=== PATIENT | female | born 1950 | race Caucasian/White ===

== ENCOUNTER 2022-10-03 12:49 | Outpatient (OUT) | payer MEDICARE, SELFPAY ==
--- NOTE | 2022-10-03 13:55 | MM_ITS ---
Patient: CORINNA PINTO Exam Date: 10/03/2022 : 1950 Gender:F Ordering : Non-Staff Physician Admission #: [id number] Family : Order #: [id number] CLICK HERE TO VIEW EXAM RADIOLOGY REPORT PROCEDURE: MM TOMOSYNTHESIS SCREENING BI COMPARISON: MM TOMOSYNTHESIS SCREENING BI, 11/05/2018. INDICATIONS: Screening mammogram Z12.31 Calculator Name NCI Breast Cancer Risk Assessment Tool 5 Year Breast Cancer Risk 2.00% Lifetime Breast Cancer Risk 4.80% Personal Breast Cancer No Personal Ovarian Cancer No Treatments None Family Cancers Father with mouth cancer at age 60. LOCATION: [facility] BREAST COMPOSITION: Heterogeneously dense,which may obscure small masses. FINDINGS: DIAGNOSTIC CATEGORY 2--BENIGN FINDING. NO CHANGE FROM COMPARISON. Scattered benign-appearing nodules are present. Scattered benign-appearing calcifications are present. RIGHT BREAST: No significant suspicious finding. LEFT BREAST: No significant suspicious finding. RECOMMENDATIONS: ROUTINE MAMMOGRAM AND CLINICAL EVALUATION IN 12 MONTHS. PLEASE NOTE: A NORMAL MAMMOGRAM DOES NOT EXCLUDE THE POSSIBILITY OF BREAST CANCER. A CLINICALLY SUSPICIOUS PALPABLE LUMP SHOULD BE BIOPSIED. Dictated by: Olivier Brannon MD on 10/03/2022 at 14:05 Approved by: Olivier Brannon MD on 10/03/2022 at 14:13
== END 2022-10-03 12:50 | disposition home or self-care (01) ==
LOC: MAMMO 12:50
DX: Z12.31 Encounter for screening mammogram for malignant neoplasm of breast (principal); Z80.0 Family history of malignant neoplasm of digestive organs
CPT/HCPCS: 77063; 77067

== ENCOUNTER 2023-08-11 18:44 | Emergency (ER) | payer MEDICARE, MEDICAID, SELFPAY ==
[2023-08-11] VITALS (36 sets, daily range): BP systolic 74–132; BP diastolic 43–63; PULSE 87–96; TEMP 36.8; O2SAT 84–98; BMI 28.0
--- NOTE | 2023-08-11 18:53 | CT_ITS ---
The [address] [address] Patient Name: CORINNA PINTO MRN: [id number] date: 1950 Sex: F Assigned Patient Location: ER Current Patient Location: ER Accession/Order Number: [id number] Exam Date: 08/11/2023 19:53 Report Date: 08/11/2023 21:08 At the request of: VICTOR HUGO MORRIS Procedure: CT abdomen pelvis wo con EXAM: CT abdomen pelvis wo con HISTORY: Abdominal pain COMPARISON: None. TECHNIQUE: Unenhanced axial CT of the abdomen and pelvis was performed with coronal and sagittal reformats provided. FINDINGS: Lung bases: Bibasilar atelectasis. ABDOMEN: Liver: Normal. Gallbladder/biliary: Normal. Pancreas: Normal. Spleen: Normal. Adrenals: Normal. Kidneys, ureters and urinary bladder: Normal. Pelvis: Normal size of the uterus. No adnexal masses. Vasculature: Calcific atherosclerosis of the abdominal aorta. There is a aorto iliac stent on the right with a bifemoral bridge at the pelvis. Hollow viscera/retroperitoneum: Normal appearance of the gastroesophageal junction. The small bowel is normal caliber. No focal colonic wall thickening. The appendix is normal. There is multifocal areas of intra-abdominal free air. Percutaneous drainage catheter terminates in the pelvis just superior to the urinary bladder. At the skin surface is a fluid collection containing air at percutaneous catheter site. Small amount of intrapelvic free fluid containing locules of air. Trace free fluid in the bilateral paracolic gutters. Musculoskeletal/soft tissues: Soft tissues are otherwise within normal limits. Partially imaged postsurgical changes of the right femur. No acute fracture or aggressive osseous abnormality. CT/CT abdomen pelvis wo con IMPRESSION: There is a percutaneous drain seen at the right ventral abdomen and coiling within the pelvis just superior to the urinary bladder. There is trace free fluid seen in the pelvis and along the paracolic gutters which is minimal. Small foci of intra-abdominal air are nonspecific and could be secondary to drainage catheter placement versus bowel perforation. Recommend correlation with clinical history. Small fluid collection with locule of air at the percutaneous catheter site external to the abdominal cavity could reflect a small abscess. Electronically authenticated by: RADHA LI Date: 08/11/2023 21:08
--- NOTE | 2023-08-11 18:53 | ECG_ITS ---
The [facility] Test Date: 2023-08-11 Pat Name: CORINNA PINTO Department: Room: - Gender: Female Fill Technician: : 1950 Requested By: Order Number: [id number] Reading MD: SARAH RAMOS Measurements Intervals Bath Rate: 94 P: 51 NV: 150 QRS: 32 QRSD: 94 T: 94 QT: 354 QTc: 406 Interpretive Statements 1100 Sinus rhythm 1570 with occasional ventricular premature complexes 3114 Cannot rule out anterior myocardial infarction, age undetermined [address] depression 9150 abnormal ECG Electronically Signed On 08-12-2023 6:35:42 EDT by SARHA RAMOS
--- NOTE | 2023-08-11 18:54 | ED_ITS ---
HPI HPI - General Adult General Chief complaint: Abdominal Pain Stated complaint: ALTERED Time Seen by Provider: 08/11/23 18:52 Source: patient Mode of arrival: ambulance Limitations: no limitations History of Present Illness HPI narrative: Patient is a 73-year-old female with a history of peritoneal dialysis who presents to the emergency department by ambulance for abdominal pain and no bowel movement today. She states her does her peritoneal dialysis nightly. She denies fevers. She has had no vomiting but has had nausea. She states she does make some urine. She states she does not believe she has ever had abdominal surgery, she has no abdominal incisions but is noted to have a peritoneal dialysis catheter to the right lower abdomen. She has not urinated today. Related Data Allergies Allergy/AdvReac Type Severity Reaction Status Date / Time No Known Drug Allergies Allergy Verified 08/11/23 18:52 Opioid HPI Opioid Management Most Recent Opioid Data: No Data to Display Review of Systems ROS Constitutional Denies: fever or chills Ears, nose, mouth, and throat Denies: throat pain or nasal congestion Cardiovascular Denies: chest pain Respiratory Denies: shortness of breath or cough Gastrointestinal Reports: abdominal pain, nausea and constipation; Denies: vomiting or diarrhea Musculoskeletal Denies: back pain Integumentary/Breast Denies: rash Neurological Denies: headache Hematologic/Lymphatic Denies: easy bruising or easy bleeding Exam Narrative Exam Narrative: Gen.: Awake, alert, in no distress Head: Normocephalic, atraumatic ENT: Moist mucous membranes Respiratory: No respiratory distress, lungs clear bilaterally Cardio: Regular rate and rhythm Gastrointestinal: Abdomen is soft, Distended but not firm, no rigidity Extremities: Moves extremities equally, no injuries noted Psych: Normal mood and affect Neuro: No focal neuro deficit Skin: Warm, dry, intact Constitutional Vital Signs, click to edit/add: Last Vital Signs Temp 98.2 F 08/11/23 18:49 Pulse 90 08/11/23 21:50 Resp 15 08/11/23 21:50 BP 119/58 08/11/23 21:45 Pulse Ox 96 08/11/23 21:00 O2 Del Method Room Air 08/11/23 19:01 Course Vital Signs Vital signs: Vital Signs Temperature 98.2 F 08/11/23 18:49 Pulse Rate 95 H 08/11/23 18:49 Respiratory Rate 16 08/11/23 18:49 Blood Pressure 74/43 L 08/11/23 18:49 Pulse Oximetry 93 L 08/11/23 18:49 Oxygen Delivery Method Room Air 08/11/23 18:49 Temperature 98.2 F 08/11/23 18:49 Pulse Rate 90 08/11/23 21:50 Respiratory Rate 15 08/11/23 21:50 Blood Pressure 119/58 08/11/23 21:45 Pulse Oximetry 96 08/11/23 21:00 Oxygen Delivery Method Room Air 08/11/23 19:01 Medical Decision Making MDM Narrative Medical decision making narrative: Arrival to the ER, patient was noted to be hypotensive. IV, sepsis labs were obtained for the patient and she was sent for CT of the abdomen and pelvis as well as a chest x-ray. Labs show the patient has significant leukocytosis and bandemia. She has a normal lactic acid but elevated procalcitonin. Urine catheter specimen obtained showing no evidence of UTI. Blood cultures are also pending. Based on the patient's history, we have concern for spontaneous bacterial peritonitis although she has no pain out of proportion on exam and blood pressure improved easily with IV fluids. Ampicillin and gentamicin were given for antibiotic coverage. CT of the abdomen and pelvis without contrast was performed as the patient has chronic renal failure. This shows a small Area of fluid in the abdomen which is nonspecific as well as a small foci of air, radiologist cannot rule out a bowel perforation although At this time we are much more concerned for SBP. Patient also has an elevated troponin which may be secondary to her chronic renal failure as she has no chest pain and no EKG changes, however she is not appropriate for staying at this facility. She receives all of her nephrology care at [facility] so the hospitalist at [facility] was contacted. Dr. Hodgson accepted the patient for transfer, critical care time 35 min Medical Records Medical records reviewed: Yes I reviewed the patient's medical records Lab Data Lab results reviewed: Yes I reviewed the patient's lab results Labs: Lab Results 08/11/23 08/11/23 Range/Units 19:03 20:25 WBC 28.6 H (4.0-11.0) 10^3/uL RBC 2.97 L (4.20-5.40) 10^6/uL Hgb 9.5 L (12.0-16.0) g/dL Hct 30.0 L (36.0-48.0) % MCV 101.0 H (81.0-99.0) fL MCH 32.0 (26.7-34.0) pg MCHC 31.7 (29.9-35.2) g/dL RDW 14.5 (11.0-15.0) % Plt Count 379 (150-450) 10^3/uL MPV 10.3 (9.5-13.5) fL Seg Neuts % (Manual) 49.0 Band Neutrophils % 30.0 H (0-5) % Lymphocytes % (Manual) 12.0 L (20.5-60.0) % Atypical Lymphs % (Man) 4.0 % Monocytes % (Manual) 5.0 (1.7-12.0) % Eosinophils % (Manual) 0.0 L (0.9-7.0) % Basophils % (Manual) 0.0 L (0.2-2.0) % Neutrophils # (Manual) 14.01 H (1.4-6.5) 10^3/uL Band Neutrophils # 8.6 H (0.0-0.3) 10^3/uL Lymphocytes # (Manual) 3.43 (1.20-3.80) 10^3/uL Abs Atypical Lymphs Man 1.14 Monocytes # (Manual) 1.43 H (0.30-0.80) 10^3/uL Eosinophils # (Manual) 0.00 (0.00-0.70) 10^3/uL Basophils # (Manual) 0.00 (0.00-0.10) 10^3/uL PT 11.7 H (9.0-11.6) sec INR 1.12 VBG pH 7.380 (7.330-7.430) VBG pCO2 40.4 (40.0-52.0) mmHg Sodium 138 (136-145) mmol/L Potassium 5.1 (3.5-5.1) mmol/L Chloride 98 (98-107) mmol/L Carbon Dioxide 25.2 (21.0-32.0) mmol/L Anion Gap 19.9 BUN 40.0 H (7.0-18.0) mg/dL Creatinine 8.30 H* (0.55-1.02) mg/dL Est GFR ( Amer) 6 L (>=60) Est GFR (Non-Af Amer) 5 L (>=60) BUN/Creatinine Ratio 4.8 Glucose 192 H (74-106) mg/dL Lactate 3.9 H* (0.4-2.0) mmol/L Calcium 9.0 (8.5-10.1) mg/dL Total Bilirubin 1.1 H (0.2-1.0) mg/dL AST 28 (15-37) U/L ALT 21 (14-59) U/L Alkaline Phosphatase 115 (46-116) U/L Troponin I High Sens 588.4 H* (4.0-51.3) pg/mL Total Protein 6.3 L (6.4-8.2) g/dL Albumin 1.6 L (3.4-5.0) g/dL Globulin 4.7 g/dL Albumin/Globulin Ratio 0.3 Lipase 11.0 L (16.0-77.0) U/L Procalcitonin 20.51 H (0.00-0.50) ng/mL Urine Color Yellow (YELLOW) Urine Clarity Cloudy A (CLEAR) Urine pH 7.0 (5.0-9.0) Ur Specific [place] 1.025 (1.005-1.025) Urine Protein 100 A (NEG/TRACE) mg/dL Urine Glucose (UA) Negative (NEGATIVE) mg/dL Urine Ketones Trace A (NEGATIVE) mg/dL Urine Occult Blood Trace-i (NEGATIVE) Urine Nitrite Negative (NEGATIVE) Urine Bilirubin Negative (NEGATIVE) Urine Urobilinogen 0.2 (0.2-1.0) EU/dL Ur Leukocyte Esterase Moderate A (NEGATIVE) Urine RBC None seen (0-2) #/HPF Urine WBC 0-2 A (NONE SEEN) #/HPF Ur Squamous Epith Cells Rare (NONE/RARE) #/LPF Urine Crystals None seen (None Seen) #/HPF Amorphous Sediment Many Urine Bacteria None seen (NONE SEEN) #/HPF Urine Casts None seen (NONE SEEN) #/LPF Urine Mucus None seen (NONE SEEN) Ur Culture Indicated? No Imaging Data Chest x-ray: Attestation: I have reviewed the pertinent imaging results. Radiologist's impression: ITS Impressions Abdomen/Pelvis CT 08/11/23 18:53 IMPRESSION: There is a percutaneous drain seen at the right ventral abdomen and coiling within the pelvis just superior to the urinary bladder. There is trace free fluid seen in the pelvis and along the paracolic gutters which is minimal. Small foci of intra-abdominal air are nonspecific and could be secondary to drainage catheter placement versus bowel perforation. Recommend correlation with clinical history. Small fluid collection with locule of air at the percutaneous catheter site external to the abdominal cavity could reflect a small abscess. Electronically authenticated by: RADHA LI Date: 08/11/2023 21:08 Chest X-Ray 08/11/23 19:31 IMPRESSION: No acute cardiopulmonary process. Electronically authenticated by: RADHA LI Date: 08/11/2023 20:55 ECG Data Attestation: I personally reviewed and interpreted this ECG as follows: (Normal sinus rhythm at a rate of 94,Occasional PVCs with no acute ST elevation. EKG reviewed by attending physician) Discharge Plan Discharge Chief Complaint: Abdominal Pain Clinical Impression: Abdominal pain, Sepsis, Peritonitis Patient Disposition: [facility] Time of Disposition Decision: 22:03 Discharge Location: [facility] Condition: Fair Mode of Transportation: EMS Print Language: Luxembourgish Referrals: Gavi Bautista DO [Primary Care Provider] - 1 week
[2023-08-11 19:20] LABS: PCO2 VBG 40.4 mmHg (40.0-52.0)
[2023-08-11 19:21] LABS: Hemoglobin 9.5 g/dL (12.0-16.0); Mean Corpuscular HGB Conc 31.7 g/dL (29.9-35.2); Mean Platelet Volume 10.3 fL (9.5-13.5); Platelet Count 379 10^3/uL (150-450); Red Blood Count 2.97 10^6/uL (4.20-5.40); Red Cell Distribution Width 14.5 % (11.0-15.0); White Blood Count 28.6 10^3/uL (4.0-11.0)
[2023-08-11] MEDS: 0.9 % SODIUM CHLORIDE 1,000 ML 999 ML IV (19:24)
[2023-08-11] MEDS: HYOSCYAMINE SULFATE 0.125 MG TAB.SUBL SL (19:24)
[2023-08-11] MEDS: ONDANSETRON PF 4 MG/2 ML VIAL IV (19:24)
--- NOTE | 2023-08-11 19:31 | XR_ITS ---
The [address] [address] Patient Name: CORINNA PINTO MRN: [id number] date: 1950 Sex: F Assigned Patient Location: ER Current Patient Location: ER Accession/Order Number: [id number] Exam Date: 08/11/2023 19:53 Report Date: 08/11/2023 20:55 At the request of: VICTOR HUGO MORRIS Procedure: XR chest 1V EXAM: XR chest 1V HISTORY: Abdominal pain COMPARISON: Chest x-ray 12/13/2020 TECHNIQUE: Single AP radiograph of the chest FINDINGS: No pneumothorax, pleural effusion or consolidation. Normal heart size. Multiple bilateral chronic appearing rib fractures. XR/XR chest 1V IMPRESSION: No acute cardiopulmonary process. Electronically authenticated by: RADHA LI Date: 08/11/2023 20:55
[2023-08-11 19:34] LABS: INR 1.12; Prothrombin Time 11.7 sec (9.0-11.6)
[2023-08-11 19:38] LABS: Alanine Aminotransferase 21 U/L (14-59); Albumin Globulin Ratio 0.3; Albumin Level 1.6 g/dL (3.4-5.0); Alkaline Phosphatase 115 U/L (46-116); Anion Gap 19.9; Aspartate Amino Transferase 28 U/L (15-37); BUN Creatinine Ratio 4.8; Bilirubin Total 1.1 mg/dL (0.2-1.0); Carbon Dioxide 25.2 mmol/L (21.0-32.0); Chloride 98 mmol/L (98-107); Estimated GFR (African America 6 (>=60); Estimated GFR (Non-African Ame 5 (>=60); Globulin 4.7 g/dL; Glucose 192 mg/dL (74-106); Potassium 5.1 mmol/L (3.5-5.1); Sodium 138 mmol/L (136-145); Total Protein 6.3 g/dL (6.4-8.2)
[2023-08-11 19:44] LABS: Lactate/Lactic Acid 3.9 mmol/L (0.4-2.0); Troponin I High Sensitivity 588.4 pg/mL (4.0-51.3)
[2023-08-11 19:51] LABS: Band Neutrophils Absolute 8.6 10^3/uL (0.0-0.3); Segmented Neut Absolute Manual 14.01 10^3/uL (1.4-6.5)
[2023-08-11 19:52] LABS: Atypical Lymphocytes Abs Man 1.14; Lymphocytes Absolute Manual 3.43 10^3/uL (1.20-3.80); Monocytes Absolute Manual 1.43 10^3/uL (0.30-0.80)
[2023-08-11 20:04] LABS: PROCALCITONIN 20.51 ng/mL (0.00-0.50)
[2023-08-11 20:38] LABS: Bilirubin Urine NEGATIVE (NEGATIVE); Blood Urine TRACE-I (NEGATIVE); Glucose Urine UA NEGATIVE (NEGATIVE); Ketones Urine TRACE mg/dL (NEGATIVE); Leukocyte Esterase Urine MODERATE (NEGATIVE); Nitrite Urine NEGATIVE (NEGATIVE); Protein Urine 100 mg/dL (NEG/TRACE); Specific Gravity Urine 1.025 (1.005-1.025); Urobilinogen Urine 0.2 EU/dL (0.2-1.0)
[2023-08-11 20:40] LABS: Clarity Urine CLOUDY (CLEAR); Color Urine YELLOW (YELLOW); Urine Microscopic Indicated YES
[2023-08-11 20:47] LABS: Amorphous Sediment Urine MANY; Bacteria Urine NONE SEEN #/HPF (NONE SEEN); Cast Seen? NONE SEEN #/LPF (NONE SEEN); Crystals Seen? None Seen #/HPF (None Seen); Mucus Urine NONE SEEN (NONE SEEN); RBC Urine NONE SEEN #/HPF (0-2); Squamous Epithelial Cell Urine RARE #/LPF (NONE/RARE); Urine Culture Indicated NO; WBC Urine 0-2 #/HPF (NONE SEEN)
[2023-08-11] MEDS: GENTAMICIN SULFATE 80 MG in 0.9 % SODIUM CHLORIDE 100 ML 204 MG IV (21:50)
[2023-08-11] MEDS: AMPICILLIN SODIUM 1,000 MG in 0.9 % SODIUM CHLORIDE 50 ML 100 MG IV (21:51)
[2023-08-11 23:20] LABS: Ammonia <10 umol/L (11-32)
[2023-08-11 23:29] LABS: Lactate/Lactic Acid 2.5 mmol/L (0.4-2.0)
== END 2023-08-12 00:07 | disposition short-term general hospital (02) ==
PROVIDERS: Physician Assistant; Emergency Provider Emergency Medicine; PCP Family Medicine
DX: A41.9 Sepsis, unspecified organism (principal); K65.9 Peritonitis, unspecified; R10.9 Unspecified abdominal pain; Z99.2 Dependence on renal dialysis
CPT/HCPCS: 36415; 71045; 74176; 80053; 81001; 82140; 82800; 83605; 83690; 84145; 84484; 85007; 85027; 85610; 87040; 93005; 96365; 96368; 96375; 99285